=== PATIENT | female | born 1985 ===

== ENCOUNTER 2017-03-14 14:51 | Emergency (ER) | payer SELFPAY ==
[2017-03-14 15:07] VITALS: BP 104/71; PULSE 97; RESP 18; TEMP 98.6; O2SAT 100
--- NOTE | 2017-03-14 15:41 | C.PDOC ---
History Of Present Illness Patient complains of sore throat and cough for 10 days. Patient took OTC medications without relief. Denies any fever, difficulty swallowing, SOB, chest pain. Time Seen by Provider: 03/14/17 15:29 Chief Complaint (Nursing): Cough, Cold, Congestion History Per: Patient History/Exam Limitations: no limitations Onset/Duration Of Symptoms: Days (10) Current Symptoms Are (Timing): Still Present Location Of Pain: Throat Sick Contacts (Context): None Associated Symptoms: Sore Throat, Cough Ear Symptoms: Bilateral: None Past Medical History Reviewed: Historical Data, Nursing Documentation, Vital Signs Vital Signs: Last Vital Signs Temp 98.6 F 03/14/17 15:05 Pulse 97 H 03/14/17 15:05 Resp 18 03/14/17 15:05 BP 104/71 03/14/17 15:05 Pulse Ox 100 03/14/17 15:05 - Medical History PMH: No Chronic Diseases Surgical History: No Surg Hx Family History: States: Unknown Family Hx - Social History Hx Alcohol Use: No Hx Substance Use: No - Immunization History Hx Tetanus Toxoid Vaccination: No Hx Influenza Vaccination: No Hx Pneumococcal Vaccination: No Review Of Systems Constitutional: Negative for: Fever, Weakness, Malaise Eyes: Negative for: Pain, Vision Change, Redness ENT: Positive for: Nose Congestion, Throat Pain. Negative for: Ear Pain Cardiovascular: Negative for: Palpitations Respiratory: Positive for: Cough. Negative for: Shortness of Breath, Sputum, Wheezing Gastrointestinal: Negative for: Vomiting, Abdominal Pain, Diarrhea Genitourinary: Negative for: Dysuria Skin: Negative for: Rash Neurological: Negative for: Headache, Dizziness Physical Exam - Physical Exam Appears: Well, Non-toxic, No Acute Distress Skin: Warm, Dry, No Diaphoretic, No Rash Head: Atraumatic, Normacephalic Eye(s): bilateral: Normal Inspection, PERRL, EOMI Ear(s): Bilateral: Normal (no erythema) Nose: Normal, No Flaring Oral Mucosa: Moist Throat: Normal, No Erythema, No Exudate, No Drooling, No Mass Neck: Normal ROM Lymphatic: Normal Exam, No Adenopathy Chest: Symmetrical Cardiovascular: Rhythm Regular, No Murmur Respiratory: Normal Breath Sounds, No Wheezing Extremity: Bilateral: Atraumatic, Normal Color And Temperature, Normal ROM Neurological/Psych: Oriented x3, Normal Speech ED Course And Treatment O2 Sat by Pulse Oximetry: 100 Medical Decision Making Medical Decision Making: Patient with sore throat and cough for over one week. States not improving. Exam and vital are WNL. Patient wants antibiotics. Rx given and also recommend supportive treatment such as cough medicine and lozenges Disposition Counseled Patient/Family Regarding: Diagnosis, Need For Followup, Rx Given - Disposition Referrals: [facility] [Outside] [facility] [Outside] Disposition Time: 15:43 Condition: GOOD Additional Instructions: Por favor haz un seguimiento con la clnica elizabeth Tylenol o Advil para cualquier fiebre o dolor elizabeth medicamentos para la tos segn sea necesario, saad robitussin elizabeth antibiticos dos veces al da jason omi semana Prescriptions: Amoxicillin [Amoxil 500 mg Cap] 500 mg PO BID #14 cap Instructions: Upper Respiratory Infection (ED) Print Language: [place] ISLANDER - POA Present On Arrival: None - Clinical Impression Clinical Impression: Upper respiratory infection
== END 2017-03-14 15:59 | disposition home or self-care (01) ==
LOC: C.ER 14:51
DX: J06.9 Acute upper respiratory infection, unspecified (principal)

== ENCOUNTER → 2017-04-05 14:51 | Emergency (ER) | payer OTHER | END | disposition left against medical advice (07) | LOC: C.ER 14:51 | DX: Z02.89 Encounter for other administrative examinations (principal); R42 Dizziness and giddiness ==

== ENCOUNTER 2017-06-29 12:53 | Emergency (ER) | payer OTHER ==
[2017-06-29] MEDS ORDERED: Sodium Chloride 0.9% 1,000 ML IV ONE (13:40)
[2017-06-29 13:53] LABS: HCG,QUALITATIVE URINE NEGATIVE (NEGATIVE)
--- NOTE | 2017-06-29 13:54 | C.PDOC ---
History Of Present Illness 32 y/o female presents to the ED complaining of vague abdominal discomfort for 1 day, associated with urinary frequency for 2 days. Patient also reports malaise. Denies constipation, vomiting, and diarrhea. No sick contacts. Additionally, patient complains of digitally and positionally reproducible parasternal chest pain. No palpitations, SOB, or dizziness. Patient has not taken any [id number] meds prior to arrival. Time Seen by Provider: 06/29/17 13:33 Chief Complaint (Nursing): Abdominal Pain History Per: Patient History/Exam Limitations: no limitations Onset/Duration Of Symptoms: Days Current Symptoms Are (Timing): Still Present Past Medical History Reviewed: Historical Data, Nursing Documentation, Vital Signs Vital Signs: Last Vital Signs Temp 98.6 F 06/29/17 13:03 Pulse 90 06/29/17 13:03 Resp 16 06/29/17 13:03 BP 116/77 06/29/17 13:03 Pulse Ox 99 06/29/17 13:59 Surgical History: No Surg Hx Family History: States: Unknown Family Hx - Social History Hx Tobacco Use: No Hx Alcohol Use: Yes Hx Substance Use: No - Immunization History Hx Tetanus Toxoid Vaccination: No Hx Influenza Vaccination: No Hx Pneumococcal Vaccination: No Review Of Systems Except As Marked, All Systems Reviewed And Found Negative. Constitutional: Positive for: Malaise. Negative for: Fever Cardiovascular: Positive for: Chest Pain. Negative for: Palpitations Respiratory: Negative for: Shortness of Breath Gastrointestinal: Positive for: Abdominal Pain. Negative for: Vomiting, Diarrhea, Constipation Genitourinary: Positive for: Frequency. Negative for: Dysuria, Hematuria Physical Exam - Physical Exam Appears: Non-toxic, No Acute Distress Skin: Normal Color, Warm, Dry Head: Atraumatic, Normacephalic Eye(s): bilateral: Normal Inspection, PERRL, EOMI Oral Mucosa: Moist Neck: Normal ROM, Supple Chest: Symmetrical, Tenderness (positionally reproducible pain to bilateral parasternal regions) Cardiovascular: Rhythm Regular, No Murmur Respiratory: Normal Breath Sounds, No Rales, No Rhonchi, No Wheezing, No Other ( respiratory distress) Gastrointestinal/Abdominal: Normal Exam, Soft, No Tenderness, No Guarding, No Rebound Back: Normal Inspection, No CVA Tenderness, No Vertebral Tenderness Extremity: Bilateral: Atraumatic, Normal Color And Temperature, Normal ROM Neurological/Psych: Oriented x3, Normal Speech ED Course And Treatment - Laboratory Results Result Diagrams: 06/29/17 14:07 06/29/17 14:07 Lab Interpretation: Normal (lipase neg, UA neg.) Urine POC: Negative O2 Sat by Pulse Oximetry: 99 (RA) Pulse Ox Interpretation: Normal - Radiology CXR: Interpreted by Me CXR Interpretation: Yes: No Acute Disease - Other Rad abd x 2 X-Ray: Interpreted by Me (normal stool/gas pattern) Medical Decision Making Medical Decision Making: Impression: 32 y/o F with abdominal discomfort, urinary frequency, and parasternal chest pain Initial Plan: --CMP --Lipase --CBC --Accucheck --UA --Urine test --X-ray obstructive series --IV fluids --Toradol 30 mg IVP normal w/u. ? gastritis Costochondritis improved with ED tx. Disposition Doctor Will See Patient In The: Office Counseled Patient/Family Regarding: Studies Performed, Diagnosis - Disposition Disposition: HOME/ ROUTINE Disposition Time: 15:02 Condition: GOOD Forms: [email or web address] (Canadian) - Clinical Impression Clinical Impression: Abdominal pain - Scribe Statement The provider has reviewed the documentation as recorded by the Scribe (Fiona Armenta) Provider Attestation: All medical record entries made by the Scribe were at my direction and personally dictated by me. I have reviewed the chart and agree that the record accurately reflects my personal performance of the history, physical exam, medical decision making, and the department course for this patient. I have also personally directed, reviewed, and agree with the discharge instructions and disposition.
[2017-06-29 14:04] LABS: SQUAMOUS EPITHIAL 1 /hpf (0-5); URINE BACTERIA RARE (<OCC); URINE BILIRUBIN NEGATIVE (NEGATIVE); URINE BLOOD NEGATIVE (NEGATIVE); URINE CLARITY Clear (Clear); URINE COLOR Yellow (YELLOW); URINE GLUCOSE (UA) NORMAL (Normal); URINE LEUKOCYTE ESTERASE NEG Leu/uL (Negative); URINE PROTEIN NEGATIVE (NEGATIVE); URINE UROBILINOGEN NORMAL mg/dL (0.2-1.0)
[2017-06-29] MEDS ORDERED: Sodium Chloride 0.9% 1,000 ML ONE (14:07)
[2017-06-29 14:13] LABS: BASO % 0.4 % (0.0-2.0); EOS # 0.1 K/uL (0.0-0.7); EOS % 1.5 % (0.0-4.0); HEMOGLOBIN 14.4 g/dL (11.0-16.0); LYMPH # 1.6 K/uL (1.0-4.3); LYMPH % 24.6 % (20.0-40.0); MEAN CELL VOLUME 88.5 fL (81.0-99.0); MEAN CORPUSCULAR HEMOGLOBIN 30.6 pg (27.0-31.0); MEAN CORPUSCULAR HGB CONC 34.6 g/dL (33.0-37.0); MEAN PLATELET VOLUME 9.6 fL (7.2-11.7); MONO # 0.7 K/uL (0.0-0.8); MONO % 10.1 % (0.0-10.0); NEUT # 4.2 K/uL (1.8-7.0); NEUT % 63.4 % (50.0-75.0); RBC 4.71 Mil/uL (3.80-5.20); RED CELL DISTRIBUTION WIDTH 13.1 % (11.5-14.5); WHITE BLOOD COUNT 6.6 K/uL (4.8-10.8)
[2017-06-29 14:37] LABS: GFR AFRICAN-AMERICAN > 60; GFR NON-AFRICAN AMERICAN > 60; LIPASE 64 U/L (23-300)
--- NOTE | 2017-06-29 14:37 | RAD ---
PROCEDURE: Radiographs of the chest and abdomen (obstructive series) HISTORY: Abdominal pain COMPARISON: No prior. TECHNIQUE: AP radiograph of the chest, with upright and supine radiographs of the abdomen. FINDINGS: CHEST: Lungs: The lungs are clear. Cardiovascular: Normal size heart. No pulmonary vascular congestion. Pleura: No pleural fluid. No pneumothorax. Other findings: None. ABDOMEN AND PELVIS: Bowel: There are small air-fluid levels in the right abdomen. No evidence of mechanical obstruction. Free air: None. Bones: Unremarkable. 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 IMPRESSION: Small air-fluid levels in the right abdomen could be related to nonspecific enteritis. Nonobstructive bowel gas pattern. Clear lungs.
[2017-06-29 14:46] LABS: ALB/GLOB RATIO 1.1 (1.0-2.1); ALBUMIN 4.3 g/dL (3.5-5.0); ALT/SGPT < 6 U/L (9-52); AST/SGOT 34 U/L (14-36); BLOOD UREA NITROGEN 7 mg/dL (7-17)
[2017-06-29] MEDS ORDERED: Alum-Mag Hydrox-Simethicone Susp (30 mL) PO STA (15:05)
[2017-06-29 15:53] VITALS: BP 108/71; PULSE 91; RESP 20; TEMP 98.3; O2SAT 100
[2017-06-29] MEDS ORDERED: Alum-Mag Hydrox-Simethicone Susp (30 mL) ONE (15:57)
== END 2017-06-29 16:18 | disposition home or self-care (01) ==
LOC: C.ER 12:53
DX: R10.9 Unspecified abdominal pain (principal)
CPT/HCPCS: 74022; 80053; 81001; 82948; 83690; 84703; 85025; 96361; 96374; 99285; J1885; J7040

== ENCOUNTER 2017-07-25 19:28 | Emergency (ER) | payer OTHER ==
[2017-07-25] MEDS ORDERED: Sodium Chloride 0.9% 1,000 ML IV ONE (20:13)
--- NOTE | 2017-07-25 20:15 | C.PDOC ---
History Of Present Illness 32 year old female presents to the ER with a complaint of headache that began today, associated with nausea, vomiting, and dizziness. Patient states the symptoms are provoked by head movement. Denies fever or chills. Chief Complaint (Nursing): Headache History Per: Patient History/Exam Limitations: no limitations Onset/Duration Of Symptoms: Hrs Current Symptoms Are (Timing): Still Present Preceeding Symptoms: None Associated Symptoms: Nausea, Vomiting. denies: Photophobia, Blurred Vision, Extremity Weakness Recent travel outside of the [place]: No Past Medical History Reviewed: Historical Data, Nursing Documentation, Vital Signs Vital Signs: Last Vital Signs Temp 98.7 F 07/25/17 22:45 Pulse 91 H 07/25/17 22:45 Resp 18 07/25/17 22:45 BP 108/73 07/25/17 22:45 Pulse Ox 99 07/25/17 23:24 Family History: States: Unknown Family Hx - Social History Hx Tobacco Use: No Hx Alcohol Use: Yes Hx Substance Use: No - Immunization History Hx Tetanus Toxoid Vaccination: No Hx Influenza Vaccination: No Hx Pneumococcal Vaccination: No Review Of Systems Constitutional: Negative for: Fever, Chills Cardiovascular: Negative for: Chest Pain, Palpitations Respiratory: Negative for: Cough, Shortness of Breath Gastrointestinal: Positive for: Nausea, Vomiting Musculoskeletal: Negative for: Neck Pain Neurological: Positive for: Headache, Dizziness Physical Exam - Physical Exam Appears: Non-toxic, Other (Alert, Conscious) Skin: Normal Color, Warm, Dry Head: Atraumatic, Normacephalic Eye(s): bilateral: Normal Inspection, PERRL, EOMI Oral Mucosa: Moist Throat: Normal, No Erythema, No Exudate Neck: Normal, No Midline Cervical Tenderness, No Paracervical Tenderness, Supple (no rigidity) Chest: Symmetrical, No Tenderness Cardiovascular: Rhythm Regular Respiratory: Normal Breath Sounds, No Rales, No Rhonchi, No Wheezing Gastrointestinal/Abdominal: Soft, No Tenderness Neurological/Psych: Oriented x3, Normal Speech ED Course And Treatment - Laboratory Results Result Diagrams: 07/25/17 20:29 07/25/17 20:29 O2 Sat by Pulse Oximetry: 99 (Room air) Pulse Ox Interpretation: Normal Progress Note: CT head, blood work, and urinalysis ordered. Antivert, reglan, toradol, and IV fluids administered. On reevaluation, patient reports improvement, she is no longer with headache or nausea, will discharge home. Disposition Counseled Patient/Family Regarding: Diagnosis - Disposition Referrals: [facility] [Outside] Disposition: HOME/ ROUTINE Disposition Time: 23:09 Condition: IMPROVED Prescriptions: Ibuprofen [Motrin Tab] 600 mg PO TIDPC #20 tab Meclizine [Antivert] 12.5 mg PO Q6 #14 tab Nitrofurantoin Macrocrystals [Macrobid] 100 mg PO ASDIR #14 cap Instructions: Vertigo (a Type of Dizziness), Urinary Tract Infections in Adults , Headache, Adult (DC) Forms: [employer] (Amharic), Gen Discharge Inst Romanian Print Language: KINYARWANDA - POA Present On Arrival: None - Clinical Impression Clinical Impression: Headache, Dizziness, UTI (urinary tract infection) - Scribe Statement The provider has reviewed the documentation as recorded by the Scribe Moses Villavicencio All medical record entries made by the Scribe were at my direction and personally dictated by me. I have reviewed the chart and agree that the record accurately reflects my personal performance of the history, physical exam, medical decision making, and the department course for this patient. I have also personally directed, reviewed, and agree with the discharge instructions and disposition.
[2017-07-25 20:37] LABS: BASO % 0.3 % (0.0-2.0); EOS # 0.1 K/uL (0.0-0.7); EOS % 1.2 % (0.0-4.0); HEMOGLOBIN 13.7 g/dL (11.0-16.0); LYMPH # 1.6 K/uL (1.0-4.3); LYMPH % 18.6 % (20.0-40.0); MEAN CELL VOLUME 88.3 fL (81.0-99.0); MEAN CORPUSCULAR HEMOGLOBIN 30.3 pg (27.0-31.0); MEAN CORPUSCULAR HGB CONC 34.4 g/dL (33.0-37.0); MEAN PLATELET VOLUME 9.3 fL (7.2-11.7); MONO # 0.8 K/uL (0.0-0.8); MONO % 9.5 % (0.0-10.0); NEUT # 6.1 K/uL (1.8-7.0); NEUT % 70.4 % (50.0-75.0); RBC 4.52 Mil/uL (3.80-5.20); RED CELL DISTRIBUTION WIDTH 13.2 % (11.5-14.5); WHITE BLOOD COUNT 8.7 K/uL (4.8-10.8)
[2017-07-25] MEDS ORDERED: Sodium Chloride 0.9% 1,000 ML ONE (20:39)
[2017-07-25 20:41] LABS: HCG,QUALITATIVE URINE NEGATIVE (NEGATIVE)
[2017-07-25 20:43] LABS: SQUAMOUS EPITHIAL 8 /hpf (0-5); URINE BACTERIA RARE (<OCC); URINE BILIRUBIN NEGATIVE (NEGATIVE); URINE BLOOD NEGATIVE (NEGATIVE); URINE CLARITY Hazy (Clear); URINE COLOR Yellow (YELLOW); URINE GLUCOSE (UA) NORMAL (Normal); URINE LEUKOCYTE ESTERASE 2+ Leu/uL (Negative); URINE PROTEIN NEGATIVE (NEGATIVE)
[2017-07-25 20:51] LABS: ALB/GLOB RATIO 1.2 (1.0-2.1); ALBUMIN 4.3 g/dL (3.5-5.0); ALT/SGPT 28 U/L (9-52); AST/SGOT 24 U/L (14-36); BLOOD UREA NITROGEN 9 mg/dL (7-17); CALCIUM 9.4 mg/dl (8.6-10.4); GFR AFRICAN-AMERICAN > 60; GFR NON-AFRICAN AMERICAN > 60
--- NOTE | 2017-07-25 21:59 | CT ---
EXAM: CT Head Without Intravenous Contrast CLINICAL HISTORY: 32 years old, female; Condition or disease; Headache; Headache not specified TECHNIQUE: Axial computed tomography images of the head/brain without intravenous contrast. All CT scans at this facility use one or more dose reduction techniques, viz.: automated exposure control; ma/kV adjustment per patient size (including targeted exams where dose is matched to indication; i.e. head); or iterative reconstruction technique. COMPARISON: No relevant prior studies available. FINDINGS: Brain: No intracranial hemorrhage. No mass. No definite edema. Ventricles: No hydrocephalus. Bones/joints: No acute fracture. Soft tissues: Unremarkable. Sinuses: No acute sinusitis. Mastoid air cells: No mastoid effusion. Orbits: Unremarkable as visualized. IMPRESSION: 1. No definite acute intracranial abnormality.
[2017-07-26 00:02] VITALS: BP 103/70; PULSE 96; RESP 16; TEMP 99.2; O2SAT 100
== END 2017-07-26 00:02 | disposition home or self-care (01) ==
LOC: C.ER 19:28
DX: N39.0 Urinary tract infection, site not specified (principal); R42 Dizziness and giddiness; R51 Headache
CPT/HCPCS: 70450; 80053; 81001; 84703; 85025; 87086; 96374; 99285; J1885; J2765; J7040

== ENCOUNTER 2018-03-06 22:00 | Emergency (ER) | payer MEDICAID, OTHER ==
--- NOTE | 2018-03-06 23:35 | C.PDOC ---
History Of Present Illness 32 year old female presents to the ER with a complaint of dry cough, sore throat and nasal congestion for the past 2 days associated with two episodes of loose stools today. Denies vomiting, chest pain, or SOB. Time Seen by Provider: 03/06/18 22:49 Chief Complaint (Nursing): ENT Problem History Per: Patient History/Exam Limitations: None Onset/Duration Of Symptoms: Days Current Symptoms Are (Timing): Still Present Quality (Mouth/Throat): Tenderness Symptoms Have Been: Continuous Past Medical History Reviewed: Historical Data, Nursing Documentation, Vital Signs Vital Signs: Last Vital Signs Temp 98.4 F 03/06/18 22:37 Pulse 100 H 03/06/18 22:37 Resp 20 03/06/18 22:37 BP 128/84 03/06/18 22:37 Pulse Ox 97 03/06/18 22:37 - Medical History PMH: Denies: Chronic Kidney Disease Family History: States: Unknown Family Hx - Social History Hx Tobacco Use: No Hx Alcohol Use: Yes Hx Substance Use: No - Immunization History Hx Tetanus Toxoid Vaccination: No Hx Influenza Vaccination: No Hx Pneumococcal Vaccination: No Review Of Systems Constitutional: Negative for: Fever ENT: Positive for: Nose Congestion, Throat Pain Cardiovascular: Negative for: Chest Pain Respiratory: Negative for: Shortness of Breath Gastrointestinal: Positive for: Other (Loose stools). Negative for: Vomiting Physical Exam - Physical Exam Appears: Non-toxic Skin: Normal Color, Warm, Dry Head: Atraumatic, Normacephalic Eye(s): bilateral: Normal Inspection Ear(s): Bilateral: Normal Nose: Other (Enlarged nasal turbinates) Oral Mucosa: Moist Throat: Normal, No Erythema, No Exudate Neck: Normal, Supple Chest: Symmetrical, No Tenderness Cardiovascular: Rhythm Regular Respiratory: Normal Breath Sounds, No Rales, No Rhonchi, No Wheezing Gastrointestinal/Abdominal: Soft, No Tenderness Neurological/Psych: Oriented x3, Normal Speech ED Course And Treatment O2 Sat by Pulse Oximetry: 97 (Room air) Pulse Ox Interpretation: Normal Progress Note: Patient is resting comfortably in the ER in no acute distress, vitals are stable, will discharge home with Rx and instructions to follow up with PMD. Disposition Counseled Patient/Family Regarding: Diagnosis, Need For Followup, Rx Given - Disposition Referrals: [facility] [Outside] Disposition: HOME/ ROUTINE Disposition Time: 23:34 Condition: STABLE Additional Instructions: Increase PO fluids Take medications as directed Follow up in clinic Return to ER if worse Prescriptions: Benzonatate [Tessalon Perles] 200 mg PO TID #14 sgl Cetirizine HCl [Zyrtec] 10 mg PO DAILY #14 capsule Instructions: Viral Syndrome (DC) Forms: [employer] (Chinese) - Clinical Impression Clinical Impression: Upper respiratory infection, Viral infection - PA / GOLF MANAGER / Resident Statement MD/DO has reviewed & agrees with the documentation as recorded. - Scribe Statement The provider has reviewed the documentation as recorded by the Scribe Moses Villavicencio All medical record entries made by the Jenniferibblayne were at my direction and personally dictated by me. I have reviewed the chart and agree that the record accurately reflects my personal performance of the history, physical exam, medical decision making, and the department course for this patient. I have also personally directed, reviewed, and agree with the discharge instructions and disposition.
[2018-03-07 02:41] VITALS: BP 128/84; PULSE 100; RESP 20; TEMP 98.4; O2SAT 97
== END 2018-03-06 23:42 | disposition home or self-care (01) ==
LOC: C.ER 22:00
DX: J06.9 Acute upper respiratory infection, unspecified (principal); B34.9 Viral infection, unspecified

== ENCOUNTER 2018-04-30 17:59 | Emergency (ER) | payer MEDICAID ==
[2018-04-30 18:06] VITALS: TEMP 98.3
--- NOTE | 2018-04-30 18:50 | C.PDOC ---
History Of Present Illness 33-year-old female presents to the ED for evaluation of cough which began 3 weeks ago. Patient also states she had diarrhea last week, which has since resolved. Patient took some Tylenol, without relief. She denies fever, chills, abdominal pain, and vomiting. Time Seen by Provider: 04/30/18 18:21 Chief Complaint (Nursing): Flu-like Symptoms History Per: Patient History/Exam Limitations: no limitations Onset/Duration Of Symptoms: Other (three weeks ) Current Symptoms Are (Timing): Still Present Associated Symptoms: Cough, Diarrhea. denies: Fever, Vomiting Additional History Per: Patient Past Medical History Reviewed: Historical Data, Nursing Documentation, Vital Signs Vital Signs: Last Vital Signs Temp 98.3 F 04/30/18 18:03 Pulse 97 H 04/30/18 18:03 Resp 20 04/30/18 18:03 BP 112/75 04/30/18 18:03 Pulse Ox 100 04/30/18 18:03 - Medical History PMH: No Chronic Diseases Denies: Chronic Kidney Disease Surgical History: No Surg Hx Family History: States: Unknown Family Hx - Social History Hx Tobacco Use: No Hx Alcohol Use: Yes Hx Substance Use: No - Immunization History Hx Tetanus Toxoid Vaccination: No Hx Influenza Vaccination: No Hx Pneumococcal Vaccination: No Review Of Systems Constitutional: Negative for: Fever Respiratory: Positive for: Cough Gastrointestinal: Positive for: Diarrhea. Negative for: Vomiting, Abdominal Pain Physical Exam - Physical Exam Appears: Non-toxic, No Acute Distress Skin: Normal Color, Warm, Dry Head: Atraumatic, Normacephalic Eye(s): bilateral: Normal Inspection Ear(s): Bilateral: Normal Nose: Normal, No Discharge Oral Mucosa: Moist Throat: Normal, No Erythema, No Exudate Neck: Supple Chest: Symmetrical, No Deformity, No Tenderness Cardiovascular: Rhythm Regular, No Murmur Respiratory: Normal Breath Sounds, No Rales, No Rhonchi, No Wheezing Extremity: Normal ROM, Capillary Refill (less than 2 seconds ) Neurological/Psych: Oriented x3, Normal Speech, Normal Cognition ED Course And Treatment O2 Sat by Pulse Oximetry: 100 (on RA) Pulse Ox Interpretation: Normal Disposition - Disposition Referrals: [facility] [Outside] Disposition: HOME/ ROUTINE Disposition Time: 19:08 Condition: GOOD Additional Instructions: Follow up with the medical doctor within 1-2 days. Return if worsened. Prescriptions: Ibuprofen [Motrin] 600 mg PO TID #21 tab Loratadine [Claritin] 10 mg PO DAILY #10 tab predniSONE [Prednisone] 20 mg PO BID #10 tab Instructions: Acute Bronchitis Forms: [employer] (Slovenian) Print Language: VIETNAMESE - Clinical Impression Clinical Impression: Bronchitis - PA / CHECK CLERK / Resident Statement MD/DO has reviewed & agrees with the documentation as recorded. - Scribe Statement The provider has reviewed the documentation as recorded by the Scribe (Jena Mann) All medical record entries made by the Scribe were at my direction and per sonally dictated by me. I have reviewed the chart and agree that the record accurately reflects my personal performance of the history, physical exam, medical decision making, and the department course for this patient. I have also personally directed, reviewed, and agree with the discharge instructions and disposition.
[2018-04-30 19:18] VITALS: BP 132/78; PULSE 76; RESP 16; O2SAT 98
== END 2018-04-30 19:17 | disposition home or self-care (01) ==
LOC: C.ER 17:59
DX: J40 Bronchitis, not specified as acute or chronic (principal)